=== PATIENT | male | born 1955 | race Caucasian/White ===

== ENCOUNTER 2023-11-25 15:18 | Emergency (ER) | payer MEDICARE, OTHER, SELFPAY ==
[2023-11-25 15:20] VITALS: BP 126/81
--- NOTE | 2023-11-25 17:15 | ED.MUSCINJ ---
HPI-Injury
General
Chief Complaint: Musculo-Skeletal Complaint
Source: patient and significant other
Time Seen by Provider: 11/25/23 16:31
Nursing documentation reviewed up to this point in time: agreed with
History of Present Illness-Injury
Initial Injury comments:
This a pleasant 68-year-old male that presents with pain after falling. Patient states that he tripped and fell landing on his left side. He currently has left groin and left upper femur pain. 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
prior to retiring when he tripped and fell. He was assisted up by other employees. He states that though initially he was unable to walk, with assistance he was able to bear weight slightly. He reports that it is painful to bear weight. Denies
head injury or loss of consciousness. Reports no other complaints at this time. Incidentally he does wear a brace on his right foot to correct posture.
Review of Systems
Review of Systems
Allergies reviewed?: Yes
All Other Systems: ROS reviewed and negative except as documented in HPI and ROS
Constitutional: Reports no symptoms
EENT: Reports no symptoms
Respiratory: Reports no symptoms
Cardiac: Reports no symptoms
ABD/GI: Reports no symptoms
: Reports no symptoms
Musculoskeletal: Reports joint swelling, muscle pain and muscle stiffness
Skin: Reports no symptoms
Neurological: Reports no symptoms
Endocrine: Reports no symptoms
Hematologic/Lymphatic: Reports no symptoms
Psychiatric: Reports anxiety
Phy Exam
General Physical Exam
General Presentation: well appearing and no apparent distress
General Skin: warm and dry
General Habitus: normal
General Mental: alert
General Hydration: appears well hydrated
ENT Exam
ENT Exam: EOMI, pharynx normal, neck supple and normocephalic
Eye Exam
Eye Exam: PERRL, cornea clear and conjunctiva normal
Cardiovascular Exam
Cardiovascular Exam: regular rate/rhythm, no edema, no murmur and normal peripheral pulses
Pulmonary Exam
Pulmonary Exam: lungs clear, no respiratory distress, no rales, no crackles, no rhonchi, no stridor, no wheezing and no cough
Gastrointestinal Exam
Gastrointestinal Exam: normal bowel sounds, non tender, soft, no organomegaly, no pulsatile mass and non distended
Neurological Exam
Neurological Exam: alert, oriented x3, no motor deficits and speech normal
Musculoskeletal Exam
Musculoskeletal Exam: full ROM, no edema and neuro vasc intact
Skin Exam
Skin Exam: normal color, warm/dry, no rash and no petechia
Psychiatric Exam
Psychiatric Exam: normal mood/affect
Injury Course
Orders/Labs/Results
Orders:
Orders
11/25/23 17:14
Femur, Left 2 View [CR Femur - Left Min 2 Vw] Urgent
Comment:
Reason For Exam: fall
Hip, Left 2-3 Views [CR Hip - LT w/wo Pel 2-3 Vw*] Urgent
Comment:
Reason For Exam: fall
Include a pelvis x-ray?: Yes
11/25/23 18:34
Cyclobenzaprine HCl [Flexeril] 10 mg PO NOW STA
Ibuprofen [Motrin] 600 mg PO NOW STA
*Critical Care Note
Total Time (30-74mins, 75-104mins- exclusive of procedures): Not Applicable
ED Attending Note
-
Portions of this chart may have been created with voice recognition software.� Occasional wrong word or��sound alike� substitutions may have occurred due to the inherent limitations of voice recognition software.
Discharge Plan
Departure
Patient Disposition: Home (Routine Discharge)
Date of Disposition: 11/25/23
Time of Disposition: 18:35
Patient with high blood pressure during this ER visit?: No
Condition: Good
Discharge Problem:
Musculoskeletal leg pain
Instructions: Muscle and Bone Pain (DC), Sprain (DC), BLOOD PRESSURE
Prescriptions:
New
cyclobenzaprine 5 mg tablet
5 mg PO BID PRN (Reason: muscle spasm) Qty: 5 0RF
diclofenac sodium 75 mg tablet,delayed release (DR/EC)
75 mg PO BID Qty: 10 0RF
No Action
multivitamin Tablet
1 tab PO DAILY
bupropion HCl 150 mg Tablet Sustained-Release 12 Hr
150 mg PO BID
propranolol 10 mg Tablet
5 mg PO DAILYPRN PRN (Reason: PALPITATIONS R/T ANXIETY)
citalopram 20 mg Tablet
40 mg PO DAILY
oxycodone 5 mg tablet
5 mg PO Q6H PRN (Reason: moderate-severe pain) Qty: 30 0RF
Rx Instructions:
1 tab for moderate pain, 2 if severe.
Dx total joint. Ongoing therapy.
meloxicam 15 mg tablet
15 mg PO DAILY Qty: 14 0RF
Rx Instructions:
Take with food.
DO NOT take within 2 hours of Aspirin post-surgery.
famotidine [Pepcid] 20 mg tablet
20 mg PO HS Qty: 14 0RF
Rx Instructions:
Take nightly while on Meloxicam.
dexamethasone 4 mg tablet
4 mg PO BID Qty: 7 0RF
Rx Instructions:
Start evening of discharge and continue twice a day until finished.
prochlorperazine maleate [Compazine] 5 mg tablet
5 mg PO TID PRN (Reason: nausea and vomiting) Qty: 20 0RF
mupirocin 2 % ointment
1 applic intranasal BID Qty: 1 0RF
Patient Comments:
started treatment on sunday08/27/22 and was completing BID last took at home 08/29/22 in am
aspirin 325 mg tablet
325 mg PO DAILY Qty: 30 0RF
Rx Instructions:
Take daily x4 weeks for blood clot prevention.
docusate sodium [Colace] 100 mg capsule
100 mg PO BID Qty: 30 0RF
sennosides [senna] 8.6 mg tablet
17.2 mg PO BID Qty: 30 0RF
Referrals:
Rubi Kim I., DO [Active] - As needed
Neftali Vicente MD [Family Provider] -
Activity Restrictions/Additional Instructions:
It was a pleasure meeting you and taking part in your care. We hope for your continued healing and wellness.
Please read discharge instructions in their entirety. However, they are for general education and may not describe your exact diagnosis at discharge. Information on your ER visit and medical conditions were discussed with you along with appropriate
follow up information...
If indicated, please take your medications as instructed and indicated on discharge paperwork.
Please schedule a follow up appointment as directed. Call to schedule an appointment
Please return to the emergency department with ANY change in, persisting, or worsening of symptoms. If any of your symptoms do not improve, or persist, or become more severe within 6-12 hours, please return to the emergency department for further
care.
Please return to the emergency department if you develop a headache, neck pain/stiffness, fever greater than 100.4F, chest pain, shortness of breath, persistent nausea, vomiting, slurred speech, difficulty walking, numbness/tingling, weakness, signs
of infection or any other symptoms that are worrisome to you.
If you have any questions or concerns please do not hesitate to call the Hospital at or E-mail me directly at [email or web address]
Interventions
Interventions:
*Risk Screen - Suicide Last Done: 11/25/23 19:20
*General Assessment Last Done: 11/25/23 19:20
*Neglect/Abuse Screening Last Done: 11/25/23 19:20
*Nursing Disposition Last Done: 11/25/23 19:20
ED-Musculoskeletal Assessment Last Done: 11/25/23 16:46
Discharge Date and Time
Discharge Date/Time: 11/25/23 19:22
Print Language: SLOVAK
[2023-11-25] MEDS: FLEXERIL 10 MG PO (18:53)
[2023-11-25] MEDS: MOTRIN 600 MG PO (18:53)
== END 2023-11-25 19:22 | disposition home or self-care (01) ==
LOC: EMR 15:18
PROVIDERS: EMERGENCY PHYSICIAN Student in an Organized Health Care Education/Training Program; FAMILY PHYSICIAN Internal Medicine
DX: M79.652 Pain in left thigh (principal); R10.30 Lower abdominal pain, unspecified; R26.2 Difficulty in walking, not elsewhere classified; M79.18 Myalgia, other site; W01.0XXA Fall on same level from slipping, tripping and stumbling without subsequent striking against object, initial encounter; K74.60 Unspecified cirrhosis of liver; M19.90 Unspecified osteoarthritis, unspecified site; F41.9 Anxiety disorder, unspecified; Z79.82 Long term (current) use of aspirin
CPT/HCPCS: 99283; 73502; 73552

== ENCOUNTER → 2024-04-07 08:07 | Outpatient (REF) | payer MEDICARE, OTHER, SELFPAY ==
[2024-04-07 12:00] LABS: INR 1.04; Iron 131 ug/dl (49-181); PT 14.1 Sec (11.4-14.6)
[2024-04-07 12:11] LABS: Percent Saturation 34 % (20-50); Total Iron Binding Capacity 377 ug/dl (261-462)
[2024-04-07 18:54] LABS: Hepatitis B Surface Antigen Negative (Negative)
[2024-04-07 19:06] LABS: Hepatitis B Surface Antibody Negative
[2024-04-07 19:15] LABS: Hepatitis A Antibody, Total Positive (Negative)
[2024-04-08 19:05] LABS: HCV Quant by NAAT IU/mL Not Detected; HCV Quant by NAAT Interp Not Detected (Not Detected); HCV Quant by NAAT Log IU/mL Not Detected log IU/mL
[2024-04-08 22:58] LABS: ANA, IgG Reflex to HEp-2 None Detected (None Detected)
[2024-04-09 06:11] LABS: Alpha-1-Antitrypsin 137 mg/dL (90-200)
== END ==
LOC: HWRAD 08:07
PROVIDERS: ATTENDING PHYSICIAN Internal Medicine Gastroenterology; FAMILY PHYSICIAN Internal Medicine
DX: R94.5 Abnormal results of liver function studies (principal)
CPT/HCPCS: 36415; 76700; 82103; 82105; 82728; 83540; 83550; 85610; 86038; 86706; 86708; 87340; 87522

== ENCOUNTER → 2024-04-14 12:28 | Outpatient (REF) | payer MEDICARE, OTHER, SELFPAY | LOC: HWLAB 12:28 | PROVIDERS: ATTENDING PHYSICIAN Internal Medicine Gastroenterology; FAMILY PHYSICIAN Internal Medicine | DX: R94.5 Abnormal results of liver function studies (principal) | CPT/HCPCS: 36415 ==